=== PATIENT | male | born 1935 | race Caucasian/White ===

== ENCOUNTER 2018-06-20 10:29 | Inpatient (IN) | payer MEDICARE ==
[~2018-06-20] VITALS: Ht 182.9 cm; Wt 95.2 kg
[~2018-06-20 10:29] MED LIST: BUTA-177 PO; CIPR500T87 PO; DOCU-131 PO; ESCI20TA10 PO; HYDR-3240 PO; IBUP-1623 PO; ONDA4TAB7 PO; ROSU40TA PO; TAMS-11 PO; UBID200C7 PO; ZOLP-413 PO
[2018-06-20] MEDS ORDERED: SODIUM CHLORIDE 0.9% 1,000ML IVBOLUS ONE (11:30)
[2018-06-20] MEDS ORDERED: SODIUM CHLORIDE FLUSH 10ML SYR IVF ONE (11:30)
[2018-06-20 11:48] LABS: BASOPHILS # (AUTO) 0.05 x10^3/uL (0-0.1); BASOPHILS % (AUTO) 1 % (0-1); EOSINOPHILS # (AUTO) 0.14 x10^3/uL (0-0.4); EOSINOPHILS % (AUTO) 2 % (1-7); LYMPHOCYTES % (AUTO) 19 % (22-44); MD NO; MEAN CORPUSCULAR HEMOGLOBIN 31.4 pg (27.5-34.5); MEAN CORPUSCULAR HGB CONC 34.4 g/dL (33.2-36.2); MEAN CORPUSCULAR VOLUME 91.2 fL (81-97); MEAN PLATELET VOLUME 7.5 fL (7.4-10.4); MONOCYTES # (AUTO) 0.61 x10^3/uL (0.2-0.8); MONOCYTES % (AUTO) 9 % (2-9); NEUTROPHILS # (AUTO) 4.96 x10^3/uL (1.8-6.8); NEUTROPHILS % (AUTO) 70 % (42-75); PLATELET COUNT 204 x10^3/uL (130-400); RED BLOOD COUNT 4.34 x10^6/uL (4.38-5.82); RED CELL DISTRIBUTION WIDTH 13.1 % (9.4-14.8)
[2018-06-20 11:57] LABS: INTERNATIONAL NORMALIZED RATIO 1.04 (0.93-1.1); PROTHROMBIN TIME 10.8 Seconds (9.6-11.5)
[2018-06-20 12:41] LABS: CHLORIDE 115 mmol/L (98-107)
[2018-06-20 13:01] LABS: ALANINE AMINOTRANSFERASE 22 U/L (12-78); ALBUMIN 3.2 g/dL (3.4-5.0); ALKALINE PHOSPHATASE 49 U/L (45-117); ANION GAP 7 mmol/L (5-15); BILIRUBIN,TOTAL 0.5 mg/dL (0.2-1.0); CALCIUM 8.2 mg/dL (8.5-10.1); CREATININE 1.19 mg/dL (0.7-1.3); TOTAL PROTEIN 6.6 g/dL (6.4-8.2)
[2018-06-20] MEDS ORDERED: OMNIPAQUE 350 MG/ML, 100ML BOTTLE ONE (13:58)
[2018-06-20] MEDS ORDERED: LABETALOL 5MG/ML, 20ML IVPush PRN (15:30)
[2018-06-20] MEDS ORDERED: ENALAPRILAT 1.25 MG/ML, 2ML IVPush PRN (15:30)
[2018-06-20] MEDS ORDERED: ACETAMINOPHEN 325 MG TABLET PO PRN (15:30)
[2018-06-20] MEDS ORDERED: ONDANSETRON 2MG/ML, 2ML IVPush PRN (15:30)
[2018-06-20] MEDS ORDERED: METOCLOPRAMIDE 5 MG/ML, 2ML IVPush PRN (15:30)
[2018-06-20] MEDS ORDERED: ONDANSETRON ODT 4 MG PO PRN (15:30)
[2018-06-20 20:00] VITALS: BP 153/85
[2018-06-20] MEDS ORDERED: MOVIPREP POWDER 1 PREP KIT PO SCH (21:00)
[2018-06-21 01:26] LABS: ALANINE AMINOTRANSFERASE 26 U/L (12-78); ALBUMIN 3.6 g/dL (3.4-5.0); ANION GAP 10 mmol/L (5-15); CALCIUM 8.8 mg/dL (8.5-10.1); CHLORIDE 113 mmol/L (98-107); CREATININE 1.07 mg/dL (0.7-1.3)
[2018-06-21 01:28] LABS: ALKALINE PHOSPHATASE 54 U/L (45-117); BILIRUBIN,TOTAL 0.8 mg/dL (0.2-1.0); TOTAL PROTEIN 7.5 g/dL (6.4-8.2)
[2018-06-21 02:23] VITALS: BP 163/92
[2018-06-21 06:50] VITALS: BP 163/104
[2018-06-21] MEDS ORDERED: MIDAZOLAM 1 MG/ML, 5ML ONE (08:26)
[2018-06-21] MEDS ORDERED: FENTANYL PF 100 MCG/2ML ONE (08:26)
[2018-06-21] MEDS ORDERED: PSYL3.4P8 PO (10:53)
[2018-06-21] MEDS ORDERED: HYDR25SU3 PR (10:53)
[2018-06-21 12:15] VITALS: BP 147/98
[2018-06-21] MEDS ORDERED: HYDROCORTISONE 25 MG SUPP PR SCH (21:00)
[2018-06-22] MEDS ORDERED: PSYLLIUM PACKET PO SCH (09:00)
== END 2018-06-21 13:15 | disposition home or self-care (01) | DRG 378 ==
LOC: ED 11:43 → EDIP 14:41 → 3NE 15:09 → DCLOUNGE 06-21 12:35
PROVIDERS: ADMIT Hospitalist; ATTEND Hospitalist
PROC: 0DB38ZX Excision of Lower Esophagus, Via Natural or Artificial Opening Endoscopic, Diagnostic (ICD-10-PCS; principal; 2018-06-21 08:45)
PROC: 0DJD8ZZ Inspection of Lower Intestinal Tract, Via Natural or Artificial Opening Endoscopic (ICD-10-PCS; 2018-06-21 08:45)
DX: K57.91 Diverticulosis of intestine, part unspecified, without perforation or abscess with bleeding (principal); E87.0 Hyperosmolality and hypernatremia; K92.1 Melena; D64.9 Anemia, unspecified; E87.8 Other disorders of electrolyte and fluid balance, not elsewhere classified; I10 Essential (primary) hypertension; E86.0 Dehydration; E88.09 Other disorders of plasma-protein metabolism, not elsewhere classified; K42.9 Umbilical hernia without obstruction or gangrene; N40.0 Benign prostatic hyperplasia without lower urinary tract symptoms; K64.4 Residual hemorrhoidal skin tags; K64.8 Other hemorrhoids; R73.9 Hyperglycemia, unspecified; M47.816 Spondylosis without myelopathy or radiculopathy, lumbar region; Z80.42 Family history of malignant neoplasm of prostate; Z86.010 Personal history of colon polyps
CPT/HCPCS: 36415; 74177; 80053; 83605; 85014; 85018; 85025; 85610; 85730; 88305; 93005; 96360; 99152; 99153; 99285; G0378; J2250; J3010; Q9967; J7030

== ENCOUNTER 2019-06-30 05:49 | Inpatient (IN) | payer MEDICARE ==
[~2019-06-30] VITALS: Ht 182.9 cm; Wt 100.2 kg
[~2019-06-30 05:49] MED LIST changes: +HYDR25SU3 PR; +PSYL3.4P8 PO
[2019-06-30] MEDS ORDERED: LACTATED RINGERS 1,000 ML IV SCH (06:52)
[2019-06-30] MEDS ORDERED: TAMS-11 PO (06:56)
[2019-06-30] MEDS ORDERED: FINA5TAB4 PO (06:56)
[2019-06-30] MEDS ORDERED: PROPOFOL 10 MG/ML, 20ML ONE (07:08)
[2019-06-30] MEDS ORDERED: ROCURONIUM 10MG/ML,5ML ONE (07:08)
[2019-06-30] MEDS ORDERED: FENTANYL PF 250 MCG/5ML ONE (07:08)
[2019-06-30] MEDS ORDERED: SUCCINYLCHOLINE 20 MG/ML, 10ML ONE (07:08)
[2019-06-30] MEDS ORDERED: DEXAMETHASONE 4 MG/ML, 1ML ONE ×2 (07:12→07:32)
[2019-06-30 07:14] VITALS: BP 154/89
[2019-06-30] MEDS ORDERED: CEFAZOLIN 1,000 MG ONE ×2 (07:31→07:32)
[2019-06-30] MEDS ORDERED: EPHEDRINE 50 MG/ML, 1ML ONE (07:37)
[2019-06-30] MEDS ORDERED: ONDANSETRON 2MG/ML, 2ML ONE ×2 (07:48)
[2019-06-30] MEDS ORDERED: hydrALAzine 20 MG/ML, 1ML IV PRN (08:30)
[2019-06-30] MEDS ORDERED: HALOPERIDOL 5 MG/ML IV PRN (08:30)
[2019-06-30] MEDS ORDERED: LABETALOL 5 MG/ML SYR. (IV ONLY) IV PRN (08:30)
[2019-06-30] MEDS ORDERED: PROMETHAZINE 12.5 MG SUPP PR PRN (08:30)
[2019-06-30] MEDS ORDERED: MIDAZOLAM 1 MG/ML, 2ML IV PRN (08:30)
[2019-06-30] MEDS ORDERED: DIAZEPAM 5 MG/ML, 2ML IVPush PRN (08:30)
[2019-06-30] MEDS ORDERED: FENTANYL PF 100 MCG/2ML IV PRN (08:30)
[2019-06-30] MEDS ORDERED: MEPERIDINE/PF 25MG/ML,1ML IVPush PRN (08:30)
[2019-06-30] MEDS ORDERED: ONDANSETRON ODT 8 MG PO PRN (08:30)
[2019-06-30] MEDS ORDERED: EPHEDRINE 50 MG/ML, 1ML IVPush PRN (08:30)
[2019-06-30] MEDS ORDERED: ALBUTEROL SULFATE 2.5 MG/3 ML NPPB PRN (08:30)
[2019-06-30] MEDS ORDERED: HYDROmorphone 2 MG/ML, 1ML IVPush PRN (08:30)
[2019-06-30] MEDS ORDERED: ACETAMINOPHEN 325 MG TABLET PO PRN (08:30)
[2019-06-30] MEDS ORDERED: ONDANSETRON 2MG/ML, 2ML IV PRN ×2 (08:30→10:30)
[2019-06-30] MEDS ORDERED: PROMETHAZINE 25 MG/ML, 1ML IV PRN (08:30)
[2019-06-30] MEDS ORDERED: OXYcodone 5 MG/5 ML ORAL.SOL UDC PO PRN (08:30)
[2019-06-30] MEDS ORDERED: OPIUM/BELLADONNA SUPP.RECT 16.2-30 MG PR PRN (10:30)
[2019-06-30] MEDS: SODIUM CHLORIDE 0.9% 1,000 ML IV SCH (10:53)
[2019-06-30 13:51] VITALS: BP 119/73
[2019-06-30] MEDS: CEFAZOLIN PMX 1GM/50ML 50 ML IV SCH ×2 (15:51→23:54)
[2019-06-30 18:40] VITALS: BP 117/64
[2019-07-01 00:04] VITALS: BP 110/64
[2019-07-01 00:38] VITALS: BP 107/66
[2019-07-01 03:57] VITALS: BP 118/68
[2019-07-01] MEDS: SODIUM CHLORIDE 0.9% 1,000 ML IV SCH (07:12)
[2019-07-01 07:15] VITALS: BP 128/69
[2019-07-01 13:27] VITALS: BP 136/68
[2019-07-01 18:33] VITALS: BP 147/79
[2019-07-02 00:53] VITALS: BP 156/66
[2019-07-02] MEDS: SODIUM CHLORIDE 0.9% 1,000 ML IV SCH (02:30)
[2019-07-02 08:37] VITALS: BP 111/70
[2019-07-02 12:24] VITALS: BP 111/74
== END 2019-07-02 13:20 | disposition home or self-care (01) | DRG 713 ==
LOC: OUT 05:49 → 4NE 09:39 → DCLOUNGE 07-02 13:10
PROVIDERS: ADMIT Urology; ATTEND Urology
PROC: 0VB08ZZ Excision of Prostate, Via Natural or Artificial Opening Endoscopic (ICD-10-PCS; principal; 2019-06-30 07:30)
DX: N40.1 Benign prostatic hyperplasia with lower urinary tract symptoms (principal); N13.8 Other obstructive and reflux uropathy; N32.81 Overactive bladder; M19.90 Unspecified osteoarthritis, unspecified site; Z80.42 Family history of malignant neoplasm of prostate; Z80.8 Family history of malignant neoplasm of other organs or systems; Z90.79 Acquired absence of other genital organ(s); Z86.73 Personal history of transient ischemic attack (TIA), and cerebral infarction without residual deficits; Z79.899 Other long term (current) drug therapy
CPT/HCPCS: 36415; 85014; 85018; 88305; 93005; G0378; J0690; J1100; J2405; J2704; J3010; J0330; J7030; J7120